=== PATIENT | female | born 1950 | race Caucasian/White ===

== ENCOUNTER → 2018-10-17 | Outpatient (CLI) | payer MEDICARE ==
[~2018-10-17] MED LIST: ALEVE220 M1 PO; CALCIUM 500 +1 EAC5; COZAAR 50 MG TA50 MG PO; GLUCOSAMINE &1 EAC1 PO; HTN MED; IBUPROFEN 800800 M1 PO; IRON325; LEVOTHYROXINE0.2 M1 PO; OCUVITE TABLET1 EAC1 PO; PREDNISONE 20 M20 MG PO; SIMVASTATIN5 MG; ULTRAVATE50 GM TP; VITAMIN D400 UNI4 PO
== END ==
LOC: M.RAD 10-15 09:20
DX: Z12.31 Encounter for screening mammogram for malignant neoplasm of breast (principal)

== ENCOUNTER → 2019-10-22 | Outpatient (CLI) | payer MEDICARE | LOC: M.RAD 06:44 | DX: Z12.31 Encounter for screening mammogram for malignant neoplasm of breast (principal) ==

== ENCOUNTER → 2020-10-26 | Outpatient (CLI) | payer MEDICARE | LOC: M.RAD 07:30 | PROVIDERS: ATTEND Internal Medicine | DX: Z12.31 Encounter for screening mammogram for malignant neoplasm of breast (principal) ==

== ENCOUNTER → 2021-10-18 | Outpatient (CLI) | payer MEDICARE | LOC: M.RAD 10:26 | PROVIDERS: ATTEND Internal Medicine | DX: M17.11 Unilateral primary osteoarthritis, right knee (principal); M85.861 Other specified disorders of bone density and structure, right lower leg; M25.761 Osteophyte, right knee ==

== ENCOUNTER → 2021-10-20 | Outpatient (CLI) | payer MEDICARE | LOC: M.RAD 06:43 | PROVIDERS: ATTEND Internal Medicine | DX: Z12.31 Encounter for screening mammogram for malignant neoplasm of breast (principal) ==